=== PATIENT | male | born 1990 | race Caucasian/White ===

== ENCOUNTER 2018-02-14 19:54 | Emergency (ER) | payer SELFPAY ==
[2018-02-14] MEDS ORDERED: Azithromycin 250 MG Tab PO ONE (21:38)
[2018-02-14] MEDS ORDERED: cefTRIAXone 250 MG Vial IM ONE (21:38)
--- NOTE | 2018-02-14 21:39 | EDM.PDOC ---
ED HPI GENERAL MEDICAL PROBLEM - General Chief Complaint: Genitourinary Problem Stated Complaint: INFECTION [id number] Time Seen by Provider: 02/14/18 20:40 Source of Information: Reports: Patient History Limitations: Reports: Language Barrier - History of Present Illness INITIAL COMMENTS - FREE TEXT/NARRATIVE: ED with concern for STD, admits unprotected sex with same female as friend who has STD symptoms. Patient asymptomatic at this time. Past Medical History - Past Health History Medical/Surgical History: Denies Medical/Surgical History Social & Family History - Tobacco Use Smoking Status *Q: Current Some Day Smoker Years of Tobacco use: 10 Packs/Tins Daily: 0.1 - Caffeine Use Caffeine Use: Reports: Coffee, Soda - Recreational Drug Use Recreational Drug Use: Yes Recreational Drug Type: Reports: Marijuana/Hashish Recreational Drug Use Frequency: Binges ED ROS GENERAL - Review of Systems Review Of Systems: ROS reveals no pertinent complaints other than HPI. ED EXAM, RENAL/ - Physical Exam Exam: See Below Exam Limited By: Language Barrier General Appearance: Alert, No Apparent Distress Eye Exam: Bilateral Eye: EOMI Ears: Normal External Exam Throat/Mouth: Normal Voice Head: Atraumatic, Normocephalic Respiratory/Chest: No Respiratory Distress Extremities: Normal Inspection Neurological: Alert, Oriented Psychiatric: Normal Affect Skin Exam: Warm, Dry, Intact, Normal Color Course - Vital Signs Last Recorded V/S: Last Vital Signs Temp 97.9 F 02/14/18 20:29 Pulse 91 02/14/18 20:29 Resp 16 02/14/18 20:29 BP 155/106 H 02/14/18 20:29 Pulse Ox 100 02/14/18 20:29 - Orders/Labs/Meds Orders: Active Orders 24 hr Category Date Time Status CHLAMYDIA AND GONORRHEA BY [facility] Urgent Lab 02/14/18 20:25 Received UA W/MICROSCOPIC [URIN] Stat Lab 02/14/18 20:25 Ordered Labs: Laboratory Tests 02/14/18 Range/Units 20:25 Urine Color Yellow (YELLOW) Urine Appearance Slightly cloudy (CLEAR) Urine pH 6.5 (5.0-9.0) Ur Specific [place] 1.025 (1.005-1.030) Urine Protein Negative (NEGATIVE) Urine Glucose (UA) Negative (NEGATIVE) Urine Ketones 40 H (NEGATIVE) Urine Occult Blood Negative (NEGATIVE) Urine Nitrite Negative (NEGATIVE) Urine Bilirubin Negative (NEGATIVE) Urine Urobilinogen 0.2 (0.2-1.0) mg/dL Ur Leukocyte Esterase Negative (NEGATIVE) Urine RBC 0-5 /HPF Urine WBC 0-5 (0-5/HPF) /HPF Ur Epithelial Cells Occasional /HPF Urine Bacteria Few (0-FEW/HPF) /HPF Urine Mucus Moderate H /LPF Meds: Medications Discontinued Medications Generic Name Dose Route Start Last Admin Trade Name Freq PRN Reason Stop Dose Admin Azithromycin 1,000 mg 02/14/18 21:38 02/14/18 21:55 Zithromax PO 02/14/18 21:39 1,000 mg ONETIME ONE Administration Ceftriaxone Sodium 250 mg 02/14/18 21:38 02/14/18 21:54 Rocephin IM 02/14/18 21:39 250 mg ONETIME ONE Administration Departure - Departure Time of Disposition: 21:38 Disposition: Home, Self-Care 01 Condition: Good Clinical Impression: STD exposure - Discharge Information Instructions: Sexually Transmitted Disease, [id number] Forms: ED Department Discharge Additional Instructions: Follow up if worsening symptoms - My Orders Last 24 Hours: My Active Orders 02/14/18 20:25 CHLAMYDIA AND GONORRHEA BY [facility] Urgent UA W/MICROSCOPIC [URIN] Stat - Assessment/Plan Last 24 Hours: My Active Orders 02/14/18 20:25 CHLAMYDIA AND GONORRHEA BY [facility] Urgent UA W/MICROSCOPIC [URIN] Stat
== END 2018-02-14 21:58 | disposition home or self-care (01) ==
LOC: DL.ED 19:54
DX: Z20.2 Contact with and (suspected) exposure to infections with a predominantly sexual mode of transmission (principal); F17.210 Nicotine dependence, cigarettes, uncomplicated
CPT/HCPCS: 81001; 87491; 87591; 96372; 99283; A9270; J0696